=== PATIENT | female | born 1990 | race Caucasian/White ===

== ENCOUNTER 2021-01-29 11:21 | Emergency (ER) | payer MEDICAID ==
[~2021-01-29] VITALS: Ht 149.9 cm; Wt 55.0 kg
[~2021-01-29 11:21] MED LIST: ALBU0.63 NEB; ALBU8.5H5 INH; BENZ-17 PO; CEFD300C37 PO; FLUT12AE2 INH; IBUP-1222 PO; MONT10TA6 PO; OXYC1TAB14 PO; PANT40TA3 PO; PRED10TA PO; PRED20TA PO; PRED5TAB PO; SODI45SP4 NAS
[2021-01-29 12:25] LABS: BASOPHILS % (AUTO) 1 % (0-1); EOSINOPHILS % (AUTO) 3 % (1-7); LYMPHOCYTES % (AUTO) 43 % (22-44); MEAN CORPUSCULAR HEMOGLOBIN 31.2 pg (27.0-34.8); MEAN CORPUSCULAR HGB CONC 33.7 g/dL (32.4-35.8); MONOCYTES % (AUTO) 7 % (2-9); NEUTROPHILS % (AUTO) 47 % (42-75); PLATELET COUNT 206 x10^3/uL (130-400); RED BLOOD COUNT 4.51 x10^6/uL (3.82-5.3); RED CELL DISTRIBUTION WIDTH 12.6 % (9.6-15.2)
--- NOTE | 2021-01-29 12:27 | NUR ---
OFFSET PRESSMAN: PT TO ROOM FROM LOBBY
--- NOTE | 2021-01-29 12:29 | NUR ---
CNS: PT IN ULTRASOUND
[2021-01-29 12:33] LABS: MD NO
[2021-01-29 12:38] LABS: ALBUMIN 4.2 g/dL (3.4-5.0); CALCIUM 8.8 mg/dL (8.5-10.1); CHLORIDE 111 mmol/L (98-107); CREATININE 1.02 mg/dL (0.55-1.02)
[2021-01-29 12:48] LABS: ANION GAP 5 mmol/L (5-15)
--- NOTE | 2021-01-29 13:40 | NUR ---
PROVIDED TURRET PRESS OPERATOR FOR PELVIC EXAM
--- NOTE | 2021-01-29 13:50 | NUR ---
break rn: pt able to provide urine speciman, walked to lab. pt updated on POC. no needs at this time.
[2021-01-29 14:01] LABS: MICROSCOPIC AUTO
[2021-01-29 14:12] LABS: CLUE CELLS PRESENT (NONE SEEN); WET PREP WBCS FEW (FEW)
--- NOTE | 2021-01-29 14:20 | NUR ---
ABBY RN: REPORT TO MAU GONZALEZ.
[2021-01-29 14:58] VITALS: BP 97/61
== END 2021-01-29 15:00 | disposition home or self-care (01) ==
LOC: ED 13:55
DX: N76.0 Acute vaginitis (principal); R10.33 Periumbilical pain; J45.909 Unspecified asthma, uncomplicated
CPT/HCPCS: 36415; 76830; 80048; 81001; 82040; 84703; 85025; 87210; 87491; 87591; 87808; 99284

== ENCOUNTER 2021-05-07 11:57 | Emergency (ER) | payer MEDICAID ==
[~2021-05-07] VITALS: Ht 149.9 cm; Wt 57.8 kg
--- NOTE | 2021-05-07 12:23 | NUR ---
driver's license examiner: pt drinking fluids in triage, advised to be NPO. urine cup given
[2021-05-07 12:55] LABS: BASOPHILS % (AUTO) 0 % (0-1); EOSINOPHILS % (AUTO) 0 % (1-7); LYMPHOCYTES % (AUTO) 12 % (22-44); MEAN CORPUSCULAR HEMOGLOBIN 32.1 pg (27.0-34.8); MEAN CORPUSCULAR HGB CONC 34.7 g/dL (32.4-35.8); MEAN PLATELET VOLUME 9.7 fL (7.4-10.4); MONOCYTES % (AUTO) 9 % (2-9); NEUTROPHILS % (AUTO) 78 % (42-75); PLATELET COUNT 212 x10^3/uL (130-400); RED BLOOD COUNT 4.59 x10^6/uL (3.82-5.3); RED CELL DISTRIBUTION WIDTH 12.8 % (9.6-15.2)
[2021-05-07 12:59] LABS: MICROSCOPIC NOT IND
[2021-05-07 13:17] LABS: ANION GAP 7 mmol/L (5-15); CALCIUM 9.3 mg/dL (8.5-10.1); CHLORIDE 105 mmol/L (98-107); CREATININE 0.82 mg/dL (0.55-1.02)
[2021-05-07 13:18] LABS: ALANINE AMINOTRANSFERASE 42 U/L (12-78); ALKALINE PHOSPHATASE 71 U/L (45-117); BILIRUBIN,TOTAL 0.9 mg/dL (0.2-1.0); TOTAL PROTEIN 8.1 g/dL (6.4-8.2)
--- NOTE | 2021-05-07 13:36 | NUR ---
SPOT WELDER LINE: PT TO ROOM FROM [facility]
--- NOTE | 2021-05-07 13:40 | NUR ---
[employer] MUSIC INSTRUCTOR: PT TO ROOM FROM LOBBY, GAIT SLOW AND STEADY
[2021-05-07] MEDS ORDERED: HYDROmorphone 2 MG/ML, 1ML ONE (14:22)
[2021-05-07] MEDS ORDERED: ONDANSETRON 2MG/ML, 2ML ONE ×2 (14:22→16:35)
[2021-05-07] MEDS ORDERED: SODIUM CHLORIDE 0.9% 1,000ML IVBOLUS ONE (14:30)
[2021-05-07] MEDS ORDERED: ONDANSETRON 2MG/ML, 2ML IVPush ONE ×2 (14:30→16:30)
[2021-05-07] MEDS ORDERED: HYDROmorphone 1 MG/ML, 1ML INJ IV ONE (14:30)
--- NOTE | 2021-05-07 14:35 | NUR ---
JAILYN RN: THIS IS A 30 YEAR OLD FEMALE WHO C/O OF RIGHT LOWER ABD PAIN 05/04. PT STATES, SHE HAS LOOSE STOOL, NAUSEA/VOMITING AND FEVER. IV STARTED, MEDICATED PER NOV. PT PLACED ON CONTINOUS SP02, 92% RA, AND CYCLE VS. DISCUSSED PLAN OF CARE, BED RAILS UP X2 ,CALL LIGHT IN PLACE. PT VERBALIZED NO OTHER NEEDS AT THIS TIME
--- NOTE | 2021-05-07 14:59 | NUR ---
JAILYN RN: PT TO CT SCAN
--- NOTE | 2021-05-07 15:05 | NUR ---
REPORT RECEIVED FROM ABBY NICOLE, THIS RN ASSUMING CARE.
[2021-05-07] MEDS ORDERED: OMNIPAQUE 350 MG/ML, 100ML BOTTLE ONE (15:09)
--- NOTE | 2021-05-07 16:10 | NUR ---
PT NOTES RETURNING NAUSEA AND ABD PAIN, KALANI LATHAM NOTIFIED. MD AT BEDSIDE TO REASSESS.
[2021-05-07] MEDS ORDERED: KETOROLAC 15 MG/1ML IVPush ONE (16:30)
--- NOTE | 2021-05-07 16:30 | NUR ---
PT TO US
[2021-05-07] MEDS ORDERED: KETOROLAC 30 MG/1 ML ONE (16:35)
--- NOTE | 2021-05-07 17:00 | NUR ---
PT REMAINS IN US
--- NOTE | 2021-05-07 17:27 | NUR ---
PT MEDICATED PER EMAR ON RETURN FROM US, NOTES RIGHT LOWER ABD PAIN LEVEL 4/10. PT A&O, RESPS EVEN AND UNLABORED. AWAIITNG US RESULTS AND DISPO.
--- NOTE | 2021-05-07 17:47 | NUR ---
PT SLEEPING, RESPS EVEN AND UNLABORED, NADN. AWAITING US RESULTS AND DISPO.
--- NOTE | 2021-05-07 18:29 | NUR ---
md adams at bedside to reassess pt, bp noted to be 88/58, ordered orthostatics prior to dc.
[2021-05-07 18:32] VITALS: BP 102/58
--- NOTE | 2021-05-07 18:43 | NUR ---
piv dc'd with tip intact. pt denies pain, denies nausea. pt given dc instructions and script, educated regarding pcp follow up. pt instructed not to drive home d/t narcotic given in ed. pt states etienne is going to drive her home. pt a&o, resps even and unlabored, nadn. pt ambulatory to dc desk with steady gait, all questions answered.
== END 2021-05-07 18:44 | disposition home or self-care (01) ==
LOC: ED 17:49
DX: R10.31 Right lower quadrant pain (principal); R11.2 Nausea with vomiting, unspecified; R19.7 Diarrhea, unspecified; J45.909 Unspecified asthma, uncomplicated; Z90.89 Acquired absence of other organs; Z90.49 Acquired absence of other specified parts of digestive tract
CPT/HCPCS: 36415; 74177; 76830; 80053; 81003; 84703; 85025; 96361; 96374; 96375; 96376; 99285; J1170; J1885; J2405; J7030; Q9967